=== PATIENT | male | born 1950 | race Hispanic/Latino ===

== ENCOUNTER 2022-01-16 19:12 | Inpatient (IN) | payer SELFPAY ==
[~2022-01-16 19:12] MED LIST: Iopamidol 370 76% 100 ML VIAL ONE
[2022-01-16] MEDS ORDERED: Morphine 4 MG/ML VIAL ONE (20:01)
[2022-01-16] MEDS ORDERED: Ondansetron PF 4 MG/2 ML Vial ONE (20:01)
[2022-01-16 20:19] LABS: Bacteria/HPF None Seen HPF (None Seen); Bilirubin 1+ (Negative); Blood, Urine Negative (Negative); Clarity Clear (Clear); Glucose, Urine (Dipstick) Normal (Negative); Ketone, Urine 10 mg/dL (Negative); Leukocyte Negative Leu/uL (Negative); Nitrite Negative (Negative); Protein, Urine (Dipstick) 50 mg/dL (Neg-Trace); RBC/HPF 0-3 HPF (0-3); Specific Gravity, Urine 1.027 (1.002-1.036); Squamous Epithelial 0-3 HPF (0-3); Urobilinogen Greater than 12 mg/dL (Less than 2); WBC/HPF 0-3 HPF (0-3)
[2022-01-16 20:29] LABS: #Lymphocytes 0.7 thou/uL (1.20-3.40); #Monocytes 0.9 thou/uL (0.11-0.59); #Neutrophils 6.3 thou/uL (1.40-6.50); %Basophils 0.3 % (0.0-1.0); %Eosinophils 0.4 % (0.0-10.0); %Lymphocytes 8.8 % (21.0-51.0); %Monocytes 11.4 % (0.0-10.0); %Neutrophils 79.1 % (42.0-75.0); Hemoglobin 15.8 g/dL (14.0-18.0); Mean Corpuscular Hemoglobin 35.8 pg (27.0-31.0); Mean Platelet Volume 9.2 fL (7.4-10.4); Platelet Count 206 thou/uL (130-400); RBC Distribution Width 13.5 % (11.5-14.5); Red Blood Cell (RBC) Count 4.41 mill/uL (4.70-6.10)
[2022-01-16 20:41] LABS: ALT (SGPT) 150 U/L (8-55); AST (SGOT) 253 U/L (5-34); Albumin 4.2 g/dL (3.4-4.8); Alkaline Phosphatase 201 U/L (40-110); Anion Gap 14 mmol/L (10-20); BUN (Urea Nitrogen) 10 mg/dL (8.4-25.7); Calc. Creatinine Clearance 0 mL/min (70-130); Carbon Dioxide 23 mmol/L (23-31); Chloride 100 mmol/L (98-107); Estimated GFR 85; Globulin 3.9 g/dL (2.4-3.5); Glucose 137 mg/dL (80-115); Lipase 34 U/L (8-78); Potassium 3.5 mmol/L (3.5-5.1); Protein, Total 8.1 g/dL (5.8-8.1); Sodium 133 mmol/L (136-145)
[2022-01-16] MEDS ORDERED: diphenhydrAMINE 50 MG/ML VIAL ONE (23:38)
[2022-01-17] MEDS ORDERED: Lorazepam 1 MG TAB PO PRN
[2022-01-17] MEDS ORDERED: Morphine 4 MG/ML VIAL SLOW IVP PRN (00:07)
[2022-01-17 00:11] VITALS: BMI 26.0
[2022-01-17] MEDS ORDERED: Ondansetron ODT 4 MG TAB SL PRN (00:15)
[2022-01-17] MEDS ORDERED: Ondansetron PF 4 MG/2 ML Vial IVP PRN (00:15)
[2022-01-17] MEDS ORDERED: Acetaminophen 325 MG TAB PO PRN (00:15)
[2022-01-17] MEDS: Sodium Chloride 0.9% 1,000 ML IV SCH ×2 (00:21→10:42)
[2022-01-17 02:47] LABS: SARS-CoV-2 NAA Rapid Test Not Detected (NotDetected)
[2022-01-17 07:46] LABS: #Lymphocytes 0.8 thou/uL (1.20-3.40); #Monocytes 0.9 thou/uL (0.11-0.59); #Neutrophils 5.1 thou/uL (1.40-6.50); %Basophils 0.3 % (0.0-1.0); %Eosinophils 0.4 % (0.0-10.0); %Lymphocytes 11.5 % (21.0-51.0); %Monocytes 13.5 % (0.0-10.0); %Neutrophils 74.3 % (42.0-75.0); Mean Corpuscular HGB CONC 33.2 g/dL (32.0-36.0); Mean Corpuscular Hemoglobin 35.9 pg (27.0-31.0); Mean Platelet Volume 9.2 fL (7.4-10.4); Platelet Count 204 thou/uL (130-400); RBC Distribution Width 13.4 % (11.5-14.5); Red Blood Cell (RBC) Count 4.17 mill/uL (4.70-6.10); White Blood Cell (WBC) Count 6.8 thou/uL (4.8-10.8)
[2022-01-17 07:56] LABS: ALT (SGPT) 278 U/L (8-55); AST (SGOT) 440 U/L (5-34); Albumin 3.7 g/dL (3.4-4.8); Alkaline Phosphatase 189 U/L (40-110); Anion Gap 10 mmol/L (10-20); BUN (Urea Nitrogen) 5 mg/dL (8.4-25.7); Bilirubin, Total 6.5 mg/dL (0.2-1.2); Calc. Creatinine Clearance 90 mL/min (70-130); Calcium 8.5 mg/dL (7.8-10.44); Carbon Dioxide 24 mmol/L (23-31); Chloride 104 mmol/L (98-107); Estimated GFR 96; Globulin 3.5 g/dL (2.4-3.5); Glucose 124 mg/dL (80-115); Potassium 3.5 mmol/L (3.5-5.1); Protein, Total 7.2 g/dL (5.8-8.1); Sodium 134 mmol/L (136-145)
[2022-01-17] MEDS ORDERED: FLU VACC QS2022-23(65YR UP)/PF 240 MCG/0.7 ML SYRINGE IM ONE (09:00)
[2022-01-17] MEDS ORDERED: Piperacillin/Tazobactam 3.375 GM in Sodium Chloride 0.9% 100 ML IVPB SCH ×2 (09:00→13:00)
[2022-01-17] MEDS ORDERED: SUGAMMADEX SODIUM 200 MG/2 ML VIAL ONE (11:49)
[2022-01-17] MEDS ORDERED: fentaNYL Citrate/PF 100 MCG/2 ML SYRINGE ONE (11:49)
[2022-01-17] MEDS ORDERED: Fentanyl 100 MCG/2 ML VIAL ONE (12:19)
[2022-01-17] MEDS ORDERED: Iopamidol 45 ML ONE (16:22)
[2022-01-17] MEDS ORDERED: Indomethacin 50 MG SUPP ONE (16:23)
[2022-01-17] MEDS ORDERED: Rocuronium Bromide 10 MG/ML (10ML VIAL) ONE ×2 (16:56→17:46)
[2022-01-17] MEDS ORDERED: PROPOFOL 200 MG/20 ML VIAL ONE (16:56)
[2022-01-17] MEDS ORDERED: Ondansetron PF 4 MG/2 ML Vial ONE ×2 (16:56→17:46)
[2022-01-17] MEDS ORDERED: Lidocaine 1% PF 5 ML VIAL ONE (16:58)
[2022-01-17] MEDS ORDERED: PHENYLEPHRINE-NS 100 MCG/ML 10 ML SYRINGE ONE (17:46)
[2022-01-17] MEDS ORDERED: EPINEPHrine 1 MG/ML AMP ONE (17:48)
[2022-01-17] MEDS ORDERED: Bupivacaine 0.25% HCL 30 ML VIAL ONE ×2 (17:48→17:49)
[2022-01-17] MEDS ORDERED: Piperacillin/Tazobactam 3.375 GM VIAL ONE (18:30)
[2022-01-17] MEDS ORDERED: HYDROcodone/Acetaminophen 10/325 mg Tablet PO PRN ×2 (19:48→19:49)
[2022-01-17] MEDS ORDERED: traMADol HCl 50 MG TAB PO PRN ×2 (19:50→19:51)
[2022-01-17] MEDS ORDERED: Electrolyte Replacement Protocol 1 EACH FS PRN (20:45)
[2022-01-17] MEDS ORDERED: Lorazepam 2 MG/ML VIAL IM PRN (20:45)
[2022-01-17] MEDS ORDERED: Ondansetron ODT 4 MG TAB PO PRN (20:45)
[2022-01-17] MEDS: clonazePAM 1 MG TAB PO SCH (21:02)
[2022-01-17] MEDS: Thiamine HCl 200 MG/2 ML VIAL SLOW IVP SCH (21:03)
[2022-01-17] MEDS: Piperacillin/Tazobactam 3.375 GM in Sodium Chloride 0.9% 100 ML IVPB SCH (21:16)
[2022-01-17] MEDS: Lorazepam 1 MG TAB PO SCH ×2 (23:11→23:12)
[2022-01-18] MEDS: Lorazepam 1 MG TAB PO SCH ×5 (04:33→23:34)
[2022-01-18] MEDS: Piperacillin/Tazobactam 3.375 GM in Sodium Chloride 0.9% 100 ML IVPB SCH ×3 (05:44→21:12)
[2022-01-18 06:32] LABS: #Lymphocytes 1.3 thou/uL (1.20-3.40); #Monocytes 0.9 thou/uL (0.11-0.59); %Basophils 0.4 % (0.0-1.0); %Eosinophils 0.6 % (0.0-10.0); %Lymphocytes 17.8 % (21.0-51.0); %Monocytes 12.4 % (0.0-10.0); %Neutrophils 68.7 % (42.0-75.0); Hemoglobin 13.3 g/dL (14.0-18.0); Mean Corpuscular HGB CONC 32.4 g/dL (32.0-36.0); Mean Corpuscular Hemoglobin 35.5 pg (27.0-31.0); Mean Platelet Volume 9.4 fL (7.4-10.4); Platelet Count 233 thou/uL (130-400); RBC Distribution Width 13.5 % (11.5-14.5); Red Blood Cell (RBC) Count 3.76 mill/uL (4.70-6.10); White Blood Cell (WBC) Count 7.3 thou/uL (4.8-10.8)
[2022-01-18 06:58] LABS: ALT (SGPT) 221 U/L (8-55); AST (SGOT) 179 U/L (5-34); Albumin 3.2 g/dL (3.4-4.8); Alkaline Phosphatase 150 U/L (40-110); Anion Gap 13 mmol/L (10-20); BUN (Urea Nitrogen) 9 mg/dL (8.4-25.7); Calc. Creatinine Clearance 81 mL/min (70-130); Calcium 8.2 mg/dL (7.8-10.44); Carbon Dioxide 21 mmol/L (23-31); Chloride 106 mmol/L (98-107); Estimated GFR 93; Globulin 3.3 g/dL (2.4-3.5); Glucose 93 mg/dL (80-115); Iron Binding Capacity, Total 178 mcg/dL (261-462); Lipase 19 U/L (8-78); Potassium 3.6 mmol/L (3.5-5.1); Protein, Total 6.5 g/dL (5.8-8.1); Sodium 136 mmol/L (136-145)
[2022-01-18 07:17] LABS: Vitamin B12 1295 pg/mL (211-911)
[2022-01-18 07:25] LABS: HBCM Index 0.07 S/CO (0-0.79); HBSAg Index 0.31 S/CO (0-0.99); Hep A IgM AB Non-Reactive (NonReactive); Hep A IgM S/CO 0.39 S/CO (0-0.79); Hep B Surf Ag Non-Reactive S/CO (NonReactive); Hep C IgG Ab Non-Reactive (NonReactive); Hep C Index 0.12 S/CO (0-0.79); Hepatitis B Core IgM Abs Non-Reactive (NonReactive)
[2022-01-18] MEDS ORDERED: Thiamine 100 MG TAB PO SCH (09:00)
[2022-01-18] MEDS ORDERED: Multivit, Therapeutic 1 TAB PO SCH (09:00)
[2022-01-18] MEDS ORDERED: Folic Acid 1 MG TAB PO SCH (09:00)
[2022-01-18] MEDS: Folic Acid 1 MG TAB PO SCH (09:13)
[2022-01-18] MEDS: Multivitamin W/ Minerals 1 TAB PO SCH (09:13)
[2022-01-18] MEDS ORDERED: FLU VACC QS2022-23(65YR UP)/PF 240 MCG/0.7 ML SYRINGE IM ONE (11:45)
[2022-01-18 14:12] LABS: Hemoglobin 13.9 g/dL (14.0-18.0)
[2022-01-18 14:30] LABS: INR-International Normal Ratio 1.3; Prothrombin Time 16.1 sec (12.0-14.7)
[2022-01-18 14:31] LABS: PTT 38.1 sec (22.9-36.1)
[2022-01-18] MEDS ORDERED: Lorazepam 1 MG TAB PO PRN (20:45)
[2022-01-18] MEDS: Thiamine HCl 200 MG/2 ML VIAL SLOW IVP SCH (21:08)
[2022-01-18] MEDS: clonazePAM 1 MG TAB PO SCH (21:09)
[2022-01-19] MEDS: Piperacillin/Tazobactam 3.375 GM in Sodium Chloride 0.9% 100 ML IVPB SCH ×2 (06:13→16:56)
[2022-01-19] MEDS: Lorazepam 0.5 MG TAB PO SCH ×2 (06:13→11:55)
[2022-01-19 06:16] LABS: #Basophils 0.1 thou/uL (0.0-0.2); #Eosinphils 0.1 thou/uL (0.0-0.7); #Lymphocytes 1.5 thou/uL (1.20-3.40); #Monocytes 0.8 thou/uL (0.11-0.59); %Basophils 1.1 % (0.0-1.0); %Eosinophils 1.3 % (0.0-10.0); %Lymphocytes 23.1 % (21.0-51.0); %Monocytes 11.6 % (0.0-10.0); %Neutrophils 62.8 % (42.0-75.0); Hemoglobin 13.4 g/dL (14.0-18.0); Mean Corpuscular HGB CONC 32.6 g/dL (32.0-36.0); Mean Corpuscular Hemoglobin 36.4 pg (27.0-31.0); Platelet Count 231 thou/uL (130-400); RBC Distribution Width 13.5 % (11.5-14.5); Red Blood Cell (RBC) Count 3.68 mill/uL (4.70-6.10); White Blood Cell (WBC) Count 6.4 thou/uL (4.8-10.8)
[2022-01-19 06:33] LABS: Anion Gap 11 mmol/L (10-20); BUN (Urea Nitrogen) 10 mg/dL (8.4-25.7); Calc. Creatinine Clearance 87 mL/min (70-130); Carbon Dioxide 23 mmol/L (23-31); Chloride 108 mmol/L (98-107); Potassium 3.5 mmol/L (3.5-5.1); Sodium 138 mmol/L (136-145)
[2022-01-19 06:34] LABS: ALT (SGPT) 137 U/L (8-55); AST (SGOT) 70 U/L (5-34); Albumin 3.1 g/dL (3.4-4.8); Alkaline Phosphatase 130 U/L (40-110); Bilirubin, Total 1.5 mg/dL (0.2-1.2); Calcium 8.3 mg/dL (7.8-10.44); Estimated GFR 96; Globulin 3.3 g/dL (2.4-3.5); Glucose 97 mg/dL (80-115); Protein, Total 6.4 g/dL (5.8-8.1)
[2022-01-19] MEDS ORDERED: Potassium Chloride 20 MEQ TAB PO SCH (08:00)
[2022-01-19] MEDS: Multivitamin W/ Minerals 1 TAB PO SCH (08:34)
[2022-01-19] MEDS: Folic Acid 1 MG TAB PO SCH (08:34)
[2022-01-19 17:00] VITALS: BP 146/71; TEMP 98.9
[2022-01-19] MEDS ORDERED: Lorazepam 1 MG TAB PO PRN (20:45)
[2022-01-19] MEDS ORDERED: Non-Formulary Item 1 EACH (Clonazepam [Clonazepam] 2 MG Tablet) PO SCH (21:00)
[2022-01-20] MEDS ORDERED: Lorazepam 0.5 MG TAB PO PRN (06:00)
[2022-01-20] MEDS ORDERED: Thiamine 100 MG TAB PO SCH (09:00)
[2022-01-20 12:33] LABS: ANA Symphony (Qualitative) Negative (Negative); ANA Symphony (Quantitative) 0.4 Ratio (< 0.7 Negative); EliA Vaculitis New Method **** NEW METHOD ****; Mitochondrial Ab 3.2 U/mL (<4 Negative); dsDNA IgG Antibody 0.9 IU/mL (<10 Negative)
== END 2022-01-19 16:30 | disposition home or self-care (01) | DRG 419 ==
LOC: ERS 19:12 → SURG B 23:17
PROVIDERS: ADMIT Surgery; ATTEND Surgery
PROC: 0F798ZZ Dilation of Common Bile Duct, Via Natural or Artificial Opening Endoscopic (ICD-10-PCS; principal; 2022-01-17)
PROC: 0FT44ZZ Resection of Gallbladder, Percutaneous Endoscopic Approach (ICD-10-PCS; 2022-01-17)
DX: K80.46 Calculus of bile duct with acute and chronic cholecystitis without obstruction (principal); K74.60 Unspecified cirrhosis of liver; K82.A1 Gangrene of gallbladder in cholecystitis; Z20.822 Contact with and (suspected) exposure to COVID-19; K66.0 Peritoneal adhesions (postprocedural) (postinfection); F41.9 Anxiety disorder, unspecified; F32.A Depression, unspecified; F51.04 Psychophysiologic insomnia; F10.10 Alcohol abuse, uncomplicated; Z79.899 Other long term (current) drug therapy
CPT/HCPCS: 36415; 71045; 74177; 74330; 76705; 80053; 80074; 81003; 81015; 82105; 82607; 82728; 83516; 83540; 83550; 83605; 83690; 84484; 85025; 85610; 85730; 86015; 86038; 86225; 88304; 93005; 96374; 96375; C1713; C1769; J0171; J1200; J1610; J2270; J2405; J2543; J2704; J3010; J3411; J3490; J7050; Q9967; S0020; U0002